=== PATIENT | male | born 1970 | race Hispanic/Latino ===

== ENCOUNTER 2021-09-21 15:57 | Emergency (ER) | payer SELFPAY ==
[2021-09-21 16:01] VITALS: BP 170/89; PULSE 78; RESP 20; TEMP 36.6; O2SAT 99
--- NOTE | 2021-09-21 16:21 | PC.NURSE ---
pt requests tetanus shot for cut to rt wrist approx 2 days ago. small scratch observed rt wrist. no s/s infection
--- NOTE | 2021-09-21 17:16 | ED.EAR ---
HPI - Ear Problem General Chief complaint: Ear Stated complaint: right ear pain Time Seen by Provider: 09/21/21 16:05 Source: patient Mode of arrival: ambulatory Limitations: language barrier (repeat chief used) History of Present Illness HPI Narrative: Patient presents with chief complaint of 2 weeks of intermittent right ear discomfort and muffled hearing. He states he has not had any trauma to his ear. He has not done anything to alleviate his symptoms. Patient denies fever, chills, nausea, vomiting, diarrhea or any other symptoms. Patient does report that he did scratch by a metal object a few days ago and would like his tetanus updated. Related Data Home Medications Medication Instructions Recorded Confirmed No Home Medications 09/21/21 09/21/21 Allergies Allergy/AdvReac Type Severity Reaction Status Date / Time No Known Allergies Allergy Verified 09/21/21 16:19 Review of Systems Review of Systems: CONSTITUTIONAL: Denies fever, chills, or sweats. EYES: Denies visual changes, redness, or discharge. ENT: Reports muffled hearing denies rhinorrhea, congestion, sore throat, or otalgia. CARDIOVASCULAR: Denies chest pain, palpitations, or edema. RESPIRATORY: Denies cough or dyspnea. GASTROINTESTINAL: Denies abdominal pain, nausea, vomiting, or diarrhea. GENITOURINARY: Denies dysuria or hematuria. SKIN: Denies rash or itching. MUSCULOSKELETAL: Denies back pain, joint pain, or myalgia. NEUROLOGIC: Denies headache, numbness, dizziness, or weakness. PSYCHIATRIC: Denies anxiety or depression. Exam Narrative: GENERAL: Well-appearing, well-nourished, and in no acute distress. HEAD: Normocephalic, atraumatic. EYES: PERRLA and EOMI. ENT: Nares clear, no rhinorrhea or epistaxis. Mucous membranes moist. Oropharynx without tonsillar hypertrophy exudate or other lesions. Dark debris plugging the right ear canal TM can not be seen NECK: Supple. No adenopathy or masses. No carotid bruits or JVD CHEST: Clear to auscultation. No respiratory distress. No wheezes rales or rhonchi HEART: Regular rate and rhythm. No murmur heard. Normal peripheral pulses. ABDOMEN: Soft, nontender, nondistended, normal active bowel sounds. EXTREMITIES: Normal range of motion. No edema. SKIN: Warm, dry, no rash. NEURO: No focal deficits. Alert and oriented x3. PSYCH: Normal mood and affect. Course Vital Signs Vital signs: Vital Signs Temperature 98 F 09/21/21 16:01 Pulse Rate 78 09/21/21 16:01 Respiratory Rate 20 09/21/21 16:01 Blood Pressure 170/89 H 09/21/21 16:01 Pulse Oximetry 99 09/21/21 16:01 Temperature 98.2 F 09/21/21 17:53 Pulse Rate 70 09/21/21 17:53 Respiratory Rate 14 09/21/21 17:53 Blood Pressure 148/91 H 09/21/21 17:53 Pulse Oximetry 100 09/21/21 17:53 Medical Decision Making MDM Narrative Medical decision making narrative: Dr Rodriguez seeing the patient in the ER. He removes some of the fungus but states he will clean out the rest in clinic. He wants the patient to start using white vinegar in the ears TID and to call his office for follow up. Vital Signs Vital Signs: Vital Signs Temperature 98 F 09/21/21 16:01 Pulse Rate 78 09/21/21 16:01 Respiratory Rate 20 09/21/21 16:01 Blood Pressure 170/89 H 09/21/21 16:01 Pulse Oximetry 99 09/21/21 16:01 Temperature 98.2 F 09/21/21 17:53 Pulse Rate 70 09/21/21 17:53 Respiratory Rate 14 09/21/21 17:53 Blood Pressure 148/91 H 09/21/21 17:53 Pulse Oximetry 100 09/21/21 17:53 Discharge Plan Discharge Clinical Impression: Acute fungal otitis externa Patient Disposition: Home, Self-Care Condition: Improved Instructions: Antibiotic Form Additional Instructions: Apply 5-10 drops of white vinegar in the ear TID. Call Dr Rodriguez in the morning on the number he has given you to set up and appointment for him to clean out your ear and further manage you external ear fungus. Return to the ER if you hav
--- NOTE | 2021-09-21 17:38 | P.CONS_ITS ---
Assessment and Plan Assessment and plan (1) Otitis externa, fungal, right ear: Code(s): B36.9 - Superficial mycosis, unspecified; H62.41 - Otitis externa in other diseases classified elsewhere, right ear Status: Acute Assessment and Plan: Keep the ear dry, vinegar drops 5 drops 3x per day, call me in the am to schedule follow up. 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 ENT consulted for further evaluation and treatment. No treatment thus far. Mild otalgia, weeks of otorrhea. Meds Home Medications and Allergies Home Medications Medication Instructions Recorded Confirmed Type No Home Medications 09/21/21 09/21/21 History Allergies Allergy/AdvReac Type Severity Reaction Status Date / Time No Known Allergies Allergy Verified 09/21/21 16:19 Vital Signs Vital Signs - 24 hr 09/21/21 16:01 Temperature 36.6 C Pulse Rate 78 Respiratory Rate 20 Blood Pressure 170/89 H Pulse Oximetry 99 Exam HENMT: Other: Right sided black debris, largely fungal elements, debrided in it's entirety, other than most distal portion abbuting tm. Patient tolerated the debridement very well. Nasal exam consistent with folliculitis. Left ear normal. Oral examination and neck examination normal.
[2021-09-21] MEDS: TETANUS,DIPHTHERIA,AC PERTUSSIS ADULT (0.5 ML) BOOSTRIX IM (17:49)
[2021-09-21 17:53] VITALS: BP 148/91; PULSE 70; RESP 14; TEMP 36.8; O2SAT 100
== END 2021-09-21 17:54 | disposition home or self-care (01) ==
PROVIDERS: Emergency Provider Family Medicine
DX: B36.9 Superficial mycosis, unspecified (principal); H62.41 Otitis externa in other diseases classified elsewhere, right ear; Z23 Encounter for immunization
CPT/HCPCS: 90471; 90715; 99282